=== PATIENT | female | born 1930 | race Caucasian/White ===

== ENCOUNTER 2019-08-26 16:05 | Inpatient (IN) ==
[2019-08-26] MEDS ORDERED: SODIUM CHLORIDE 0.9% 1,000 ML IV STA (16:19)
[2019-08-26] MEDS ORDERED: ONDANSETRON 4 MG/2 ML VIAL IV STA (16:19)
[2019-08-26] MEDS ORDERED: DICYCLOMINE 20 MG/2 ML AMP IM ONE (16:23)
[2019-08-26] MEDS ORDERED: LEVOFLOXACIN INJ 750 MG in PREMIX 1 EACH IV STA (17:03)
[2019-08-26] MEDS ORDERED: metroNIDAZOLE INJ 500 MG in PREMIX 1 EACH IV STA (17:03)
[2019-08-26] MEDS ORDERED: fentaNYL 100 MCG/2 ML VIAL ONE (17:14)
[2019-08-26] MEDS ORDERED: fentaNYL 100 MCG/2 ML VIAL IV STA (17:15)
[2019-08-26 17:56] LABS: Basophils % 0.3 % (0.0-0.8); Hematocrit 42.6 VOL% (35.7-47.0); Hemoglobin 14.3 GM/DL (12.0-16.0); Immature Granulocytes % 0.3 %; Immature Granulocytes Absolute 0.02 #; Lymphocytes # 0.4 10*3/uL (1.4-4.0); Mean Corpuscular HGB Conc 33.6 GM/DL (32-36); Mean Corpuscular Volume 95.9 FL (87-102); Mean Platelet Volume 9.5 FL (9.6-12.0); Monocytes % 5.8 % (1.7-12.7); Neutrophils % 87.6 % (38.7-73.9); Platelet Count 324 T/CUMM (130-400); Red Blood Count 4.44 MC/CUMM (3.8-5.5); Red Cell Distribution Width 14.5 % (9.3-17.3)
[2019-08-26 18:19] LABS: Alanine Aminotransferase 15 U/L (13-56); Albumin 3.4 G/DL (3.4-5.0); Alkaline Phosphatase 57 U/L (45-117); Amylase 378 U/L (25-115); Aspartate Amino Transferase 17 U/L (0-37); Blood Urea Nitrogen 23 MG/DL (7-18); Calcium 8.6 MG/DL (8.5-10.1); Estimated Glom Filtration Rate 24 ML/MIN; Glucose 146 MG/DL (74-106); Osmolality,Calculated 281.7 MOS/KG (273-304); Total Protein 6.7 G/DL (6.4-8.3); Troponin I < 0.015 NG/ML (0.00-0.045)
[2019-08-26] MEDS ORDERED: PHENYLEPHRINE DRIP 40 MG/250 ML PREMIX IV PRN (18:25)
[2019-08-26 18:30] LABS: Anisocytosis 1+; Band Neutrophils 34 % (0-10); Lymphocytes 6 % (20-55); Macrocytosis 1+; Microcytosis Slight; Reactive Lymphocytes Slight; Segmented Neutrophils 56 % (50-85); Total Cells Counted 100
[2019-08-26 18:31] LABS: Platelet Estimate Normal
[2019-08-26] MEDS ORDERED: PHENYLEPHRINE DRIP 40 MG/250 ML PREMIX IV ONE (19:17)
[2019-08-26] MEDS ORDERED: PROPOFOL 1,000 MG/100 ML BOTTLE IV ONE (19:17)
[2019-08-26] MEDS: PROPOFOL 1,000 MG/100 ML BOTTLE IV SCH (19:28)
[2019-08-26 19:49] LABS: Amorphous Crystals,Urine Occasional /HPF (Few); Apearance,Urine CLOUDY (Clear); Bilirubin,Urine Negative (Negative); Blood, Urine Small mg/dL (Negative); Glucose,Urine (UA) Negative (Negative); Hyaline Casts,Urine 34 /LPF (0-3); Ketones,Urine 5 mg/dL (Negative); Mucus,Urine Occasional /LPF (Occasional); Nitrite,Urine Negative (Negative); Protein,Urine 100 MG/DL; Squamous Epithelial Cell,Urine Occasional /HPF (0-10); Urine Color Amber (Yellow); Urine Specific Gravity 1.026 (1.001-1.035); Urine Urobilinogen < 2.0 EU/DL (0.2-1.0)
[2019-08-26] MEDS ORDERED: LIDOCAINE 2% 5 ML VIAL ONE (20:06)
[2019-08-26] MEDS ORDERED: SUCCINYLCHOLINE 200 MG/10 ML VIAL ONE (20:06)
[2019-08-26] MEDS ORDERED: PROPOFOL 200 MG/20 ML VIAL IV ONE (20:06)
[2019-08-26] MEDS ORDERED: ETOMIDATE 40 MG/20 ML VIAL IV ONE (20:06)
[2019-08-26] MEDS ORDERED: ROCURONIUM 100 MG/10 ML VIAL IV ONE (20:08)
[2019-08-26] MEDS ORDERED: PHENYLEPHRINE 1 MG/10 ML SYRINGE IV ONE (20:08)
[2019-08-26] MEDS ORDERED: SEVOFLURANE 1 UNIT/15 MINUTE INH ONE (20:08)
[2019-08-26] MEDS ORDERED: ALBUMIN 5% 12.5 GM/250 ML VIAL IV ONE (20:08)
[2019-08-26] MEDS ORDERED: PHENYLEPHRINE 10 MG/1 ML VIAL IV ONE (20:08)
[2019-08-26] MEDS ORDERED: SODIUM BICARBONATE 50 MEQ/50 ML VIAL IV ONE (20:08)
[2019-08-26] MEDS ORDERED: LACTATED RINGERS 1,000 ML IV ONE (20:09)
[2019-08-26] MEDS ORDERED: SODIUM CHLORIDE 0.9% 250 ML IV ONE (20:09)
[2019-08-26 20:37] LABS: ABG Base Excess -6.3 MMOL/L (-2.5-2.5); ABG HCO3 19.3 MMOL/L (20-26); ABG Oxygen Saturation 97.7 % (95-100); ABG PCO2 54.3 MM HG (35-48); ABG PH 7.222 (7.35-7.45); Allen Test Positive; Pt O2 Delivery Device Ventilator
[2019-08-26] MEDS: DEXTROSE 5% LACTATED RINGERS 1,000 ML IV SCH (21:12)
[2019-08-27] MEDS: metroNIDAZOLE INJ 500 MG in PREMIX 1 EACH IV SCH ×3 (01:36→17:38)
[2019-08-27 03:23] LABS: Basophils % 0.3 % (0.0-0.8); Hematocrit 35.2 VOL% (35.7-47.0); Immature Granulocytes % 0.4 %; Immature Granulocytes Absolute 0.03 #; Lymphocytes # 0.6 10*3/uL (1.4-4.0); Mean Corpuscular HGB Conc 33.8 GM/DL (32-36); Mean Corpuscular Volume 95.1 FL (87-102); Mean Platelet Volume 9.5 FL (9.6-12.0); Monocytes % 6.5 % (1.7-12.7); Neutrophils % 85.8 % (38.7-73.9); Platelet Count 262 T/CUMM (130-400); Red Cell Distribution Width 14.6 % (9.3-17.3)
[2019-08-27 03:32] LABS: Pt O2 Delivery Device Ventilator
[2019-08-27 03:33] LABS: Hemoglobin 11.9 GM/DL (12.0-16.0)
[2019-08-27 03:33] LABS: ABG Base Excess -1.6 MMOL/L (-2.5-2.5); ABG HCO3 23.1 MMOL/L (20-26); ABG Oxygen Saturation 99.3 % (95-100); ABG PH 7.439 (7.35-7.45); ABG TCO2 19.1 MMOL/L (23-27)
[2019-08-27 03:51] LABS: Band Neutrophils 27 % (0-10); Hypochromasia Slight; Lymphocytes 7 % (20-55); Platelet Estimate Normal; Segmented Neutrophils 60 % (50-85); Total Cells Counted 100
[2019-08-27 03:53] LABS: Albumin 3.1 G/DL (3.4-5.0); Calcium 7.6 MG/DL (8.5-10.1); Osmolality,Calculated 287.4 MOS/KG (273-304); Total Protein 5.5 G/DL (6.4-8.3)
[2019-08-27] MEDS: DEXTROSE 5% LACTATED RINGERS 1,000 ML IV SCH ×4 (04:34→23:45)
[2019-08-27] MEDS: HYDROmorphone 2 MG/1 ML VIAL IV PRN ×3 (09:55→16:43)
[2019-08-27] MEDS: PANTOPRAZOLE 40 MG VIAL IV SCH (10:17)
[2019-08-27] MEDS: ENOXAPARIN 30 MG/0.3 ML SYRINGE SUBCUT SCH (10:17)
[2019-08-27] MEDS: PROPOFOL 1,000 MG/100 ML BOTTLE IV SCH ×2 (11:04→18:20)
[2019-08-27] MEDS: ALBUTEROL/IPRATROPIUM 3 ML NEB RESP TX SCH ×2 (13:48→19:38)
[2019-08-27] MEDS: ONDANSETRON 4 MG/2 ML VIAL IV PRN ×2 (14:52→17:43)
[2019-08-27] MEDS: LEVOFLOXACIN INJ 250 MG in PREMIX 1 EACH IV SCH (17:38)
[2019-08-28] MEDS: ALBUTEROL/IPRATROPIUM 3 ML NEB RESP TX SCH ×4 (01:40→20:07)
[2019-08-28] MEDS: metroNIDAZOLE INJ 500 MG in PREMIX 1 EACH IV SCH ×3 (02:30→17:26)
[2019-08-28] MEDS: HYDROmorphone 2 MG/1 ML VIAL IV PRN ×5 (02:34→20:32)
[2019-08-28] MEDS: ONDANSETRON 4 MG/2 ML VIAL IV PRN ×4 (02:34→13:25)
[2019-08-28 08:25] LABS: Basophils % 0.1 % (0.0-0.8); Eosinophils % 0.1 % (0.00-10.9); Hemoglobin 10.1 GM/DL (12.0-16.0); Immature Granulocytes % 0.7 %; Immature Granulocytes Absolute 0.08 #; Lymphocytes # 0.6 10*3/uL (1.4-4.0); Lymphocytes % 5.7 % (21.3-54.2); Mean Corpuscular HGB Conc 33.7 GM/DL (32-36); Mean Corpuscular Volume 96.5 FL (87-102); Mean Platelet Volume 9.5 FL (9.6-12.0); Monocytes % 5.5 % (1.7-12.7); Neutrophils % 87.9 % (38.7-73.9); Platelet Count 179 T/CUMM (130-400); Red Blood Count 3.11 MC/CUMM (3.8-5.5); Red Cell Distribution Width 14.9 % (9.3-17.3)
[2019-08-28 08:35] LABS: Calcium 7.9 MG/DL (8.5-10.1); Osmolality,Calculated 288.8 MOS/KG (273-304)
[2019-08-28 08:43] LABS: Band Neutrophils 1 % (0-10); Hypochromasia 1+; Lymphocytes 3 % (20-55); Ovalocytes Slight; Platelet Estimate Adequate; Segmented Neutrophils 89 % (50-85); Total Cells Counted 100
[2019-08-28] MEDS: DEXTROSE 5% LACTATED RINGERS 1,000 ML IV SCH ×2 (09:44→15:37)
[2019-08-28] MEDS: PANTOPRAZOLE 40 MG VIAL IV SCH (09:45)
[2019-08-28] MEDS: ENOXAPARIN 30 MG/0.3 ML SYRINGE SUBCUT SCH (09:45)
[2019-08-28] MEDS ORDERED: MAGNESIUM SULF RIDER 4 GM in PREMIX 1 EACH IV PRN (10:34)
[2019-08-28] MEDS ORDERED: NYSTATIN 500,000 UNIT/5 ML UDCUP SWISH/SWAL ONE (10:46)
[2019-08-28] MEDS: POTASSIUM CHLORIDE RIDER 10 MEQ in PREMIX 1 EACH IV PRN ×4 (11:51→15:34)
[2019-08-28] MEDS: MAGNESIUM SULF RIDER 2 GM in PREMIX 1 EACH IV PRN (11:52)
[2019-08-28] MEDS: NYSTATIN 500,000 UNIT/5 ML UDCUP SWISH/SWAL SCH ×3 (13:07→20:32)
[2019-08-28] MEDS ORDERED: diphenhydrAMINE CAP 25 MG CAPSULE PO PRN (15:45)
[2019-08-28] MEDS: PREGABALIN 75 MG CAPSULE PO SCH ×2 (15:52→20:33)
[2019-08-28] MEDS: LEVOFLOXACIN INJ 250 MG in PREMIX 1 EACH IV SCH (19:06)
[2019-08-29] MEDS: DEXTROSE 5% LACTATED RINGERS 1,000 ML IV SCH ×4 (00:09→18:43)
[2019-08-29] MEDS: ALBUTEROL/IPRATROPIUM 3 ML NEB RESP TX SCH ×4 (01:00→20:35)
[2019-08-29] MEDS: metroNIDAZOLE INJ 500 MG in PREMIX 1 EACH IV SCH ×3 (01:28→17:09)
[2019-08-29 05:20] LABS: Basophils % 0.1 % (0.0-0.8); Eosinophils % 0.5 % (0.00-10.9); Hematocrit 26.6 VOL% (35.7-47.0); Hemoglobin 8.8 GM/DL (12.0-16.0); Immature Granulocytes % 0.5 %; Immature Granulocytes Absolute 0.04 #; Lymphocytes # 0.3 10*3/uL (1.4-4.0); Lymphocytes % 3.9 % (21.3-54.2); Mean Corpuscular HGB Conc 33.1 GM/DL (32-36); Mean Corpuscular Volume 98.2 FL (87-102); Mean Platelet Volume 10.3 FL (9.6-12.0); Platelet Count 180 T/CUMM (130-400); Red Blood Count 2.71 MC/CUMM (3.8-5.5); Red Cell Distribution Width 14.9 % (9.3-17.3); White Blood Count 8.6 T/CUMM (4-12)
[2019-08-29 05:30] LABS: Albumin 2.1 G/DL (3.4-5.0); Bilirubin,Total 0.6 MG/DL (0.2-1.0); Calcium 7.3 MG/DL (8.5-10.1); Total Protein 4.8 G/DL (6.4-8.3)
[2019-08-29 05:59] LABS: Band Neutrophils 7 % (0-10); Lymphocytes 8 % (20-55); Segmented Neutrophils 80 % (50-85); Total Cells Counted 100
[2019-08-29 06:00] LABS: Hypochromasia 1+; Microcytosis Slight
[2019-08-29 06:01] LABS: Platelet Estimate Adequate
[2019-08-29] MEDS ORDERED: BUPIVACAINE MPF 0.25% 30 ML VIAL ONE (08:03)
[2019-08-29] MEDS ORDERED: LIDOCAINE 1%/EPI INJ 20 ML VIAL ONE (08:03)
[2019-08-29] MEDS ORDERED: PROPOFOL 200 MG/20 ML VIAL IV ONE (08:58)
[2019-08-29] MEDS ORDERED: LIDOCAINE 2% 5 ML VIAL ONE (08:58)
[2019-08-29] MEDS ORDERED: ETOMIDATE 40 MG/20 ML VIAL IV ONE (08:58)
[2019-08-29] MEDS: PANTOPRAZOLE 40 MG VIAL IV SCH (10:30)
[2019-08-29] MEDS: HYDROmorphone 2 MG/1 ML VIAL IV PRN ×2 (10:45→21:16)
[2019-08-29] MEDS: NYSTATIN 500,000 UNIT/5 ML UDCUP SWISH/SWAL SCH ×4 (11:02→21:17)
[2019-08-29] MEDS: PREGABALIN 75 MG CAPSULE PO SCH ×3 (11:02→21:17)
[2019-08-29] MEDS: LEVOFLOXACIN INJ 250 MG in PREMIX 1 EACH IV SCH (18:30)
[2019-08-29] MEDS ORDERED: INFLUENZA VIRUS VACCINE 0.5 ML SYRINGE IM ONE (22:50)
[2019-08-29] MEDS ORDERED: PNEUMOCOCCAL VACCINE (13 VALENT) 0.5 ML SYRINGE IM ONE (22:56)
[2019-08-30] MEDS: DEXTROSE 5% LACTATED RINGERS 1,000 ML IV SCH ×3 (02:02→14:58)
[2019-08-30] MEDS: ALBUTEROL/IPRATROPIUM 3 ML NEB RESP TX SCH ×4 (02:07→19:32)
[2019-08-30] MEDS: metroNIDAZOLE INJ 500 MG in PREMIX 1 EACH IV SCH ×3 (02:11→17:08)
[2019-08-30 08:16] LABS: Calcium 7.9 MG/DL (8.5-10.1); Osmolality,Calculated 278.5 MOS/KG (273-304)
[2019-08-30] MEDS: HYDROmorphone 2 MG/1 ML VIAL IV PRN ×3 (08:36→21:31)
[2019-08-30] MEDS: PANTOPRAZOLE 40 MG VIAL IV SCH (08:43)
[2019-08-30] MEDS: PREGABALIN 75 MG CAPSULE PO SCH ×3 (08:46→21:28)
[2019-08-30] MEDS: NYSTATIN 500,000 UNIT/5 ML UDCUP SWISH/SWAL SCH ×4 (08:46→21:29)
[2019-08-30] MEDS: MAGNESIUM SULF RIDER 2 GM in PREMIX 1 EACH IV PRN (09:57)
[2019-08-30] MEDS ORDERED: POTASSIUM CHLORIDE 20 MEQ TABLET PO ONE (09:58)
[2019-08-30] MEDS: POTASSIUM CHLORIDE RIDER 10 MEQ in PREMIX 1 EACH IV PRN (09:58)
[2019-08-30] MEDS: POTASSIUM CHLORIDE RIDER 10 MEQ in PREMIX 1 EACH IV SCH ×4 (10:07→13:59)
[2019-08-30] MEDS: ONDANSETRON 4 MG/2 ML VIAL IV PRN ×2 (16:27→21:30)
[2019-08-30] MEDS: LEVOFLOXACIN INJ 250 MG in PREMIX 1 EACH IV SCH (18:22)
[2019-08-31] MEDS: ALBUTEROL/IPRATROPIUM 3 ML NEB RESP TX SCH ×4 (00:35→19:00)
[2019-08-31] MEDS: ONDANSETRON 4 MG/2 ML VIAL IV PRN ×4 (00:38→21:59)
[2019-08-31] MEDS: HYDROmorphone 2 MG/1 ML VIAL IV PRN ×4 (00:38→21:59)
[2019-08-31] MEDS: DEXTROSE 5% LACTATED RINGERS 1,000 ML IV SCH ×2 (00:40→07:36)
[2019-08-31] MEDS: metroNIDAZOLE INJ 500 MG in PREMIX 1 EACH IV SCH ×4 (02:03→17:20)
[2019-08-31] MEDS: NYSTATIN 500,000 UNIT/5 ML UDCUP SWISH/SWAL SCH ×6 (07:38→21:37)
[2019-08-31] MEDS: PREGABALIN 75 MG CAPSULE PO SCH ×4 (07:38→21:31)
[2019-08-31] MEDS: PANTOPRAZOLE 40 MG VIAL IV SCH ×2 (07:43→09:03)
[2019-08-31 08:36] LABS: Basophils % 0.1 % (0.0-0.8); Eosinophils # 0.1 10*3/uL (0.0-0.87); Eosinophils % 1.1 % (0.00-10.9); Hematocrit 29.4 VOL% (35.7-47.0); Hemoglobin 9.8 GM/DL (12.0-16.0); Immature Granulocytes % 0.9 %; Immature Granulocytes Absolute 0.09 #; Lymphocytes # 0.6 10*3/uL (1.4-4.0); Lymphocytes % 5.2 % (21.3-54.2); Mean Corpuscular HGB Conc 33.3 GM/DL (32-36); Mean Corpuscular Volume 95.1 FL (87-102); Mean Platelet Volume 9.9 FL (9.6-12.0); Monocytes % 11.2 % (1.7-12.7); Neutrophils % 81.5 % (38.7-73.9); Platelet Count 200 T/CUMM (130-400); Red Blood Count 3.09 MC/CUMM (3.8-5.5); Red Cell Distribution Width 14.6 % (9.3-17.3); White Blood Count 10.6 T/CUMM (4-12)
[2019-08-31 08:44] LABS: Osmolality,Calculated 266.2 MOS/KG (273-304)
[2019-08-31] MEDS ORDERED: MAGNESIUM SULF RIDER 4 GM in PREMIX 1 EACH IV ONE (09:19)
[2019-08-31] MEDS: POTASSIUM CHLORIDE RIDER 10 MEQ in PREMIX 1 EACH IV PRN ×2 (09:31→12:37)
[2019-08-31] MEDS: MAGNESIUM SULF RIDER 2 GM in PREMIX 1 EACH IV PRN ×2 (09:32→12:37)
[2019-08-31] MEDS: DEXT 5% LACT RING KCL 20 MEQ 20 MEQ/1,000 ML BAG IV SCH (10:07)
[2019-08-31] MEDS: POTASSIUM CHLORIDE RIDER 20 MEQ in PREMIX 1 EACH IV SCH ×2 (10:37→13:21)
[2019-08-31] MEDS: LEVOFLOXACIN INJ 250 MG in PREMIX 1 EACH IV SCH (18:36)
[2019-09-01] MEDS: ALBUTEROL/IPRATROPIUM 3 ML NEB RESP TX SCH ×3 (00:45→12:16)
[2019-09-01] MEDS: DEXT 5% LACT RING KCL 20 MEQ 20 MEQ/1,000 ML BAG IV SCH ×2 (01:19→09:02)
[2019-09-01] MEDS: ONDANSETRON 4 MG/2 ML VIAL IV PRN ×2 (02:05→05:54)
[2019-09-01] MEDS: HYDROmorphone 2 MG/1 ML VIAL IV PRN ×2 (02:05→05:59)
[2019-09-01 04:54] LABS: Calcium 7.8 MG/DL (8.5-10.1); Osmolality,Calculated 273.7 MOS/KG (273-304)
[2019-09-01] MEDS ORDERED: BISACODYL 10 MG SUPP RECTAL ONE (07:25)
[2019-09-01 08:32] VITALS: BP 155/74
[2019-09-01] MEDS: PANTOPRAZOLE 40 MG VIAL IV SCH (09:01)
[2019-09-01] MEDS: NYSTATIN 500,000 UNIT/5 ML UDCUP SWISH/SWAL SCH (09:01)
[2019-09-01] MEDS: PREGABALIN 75 MG CAPSULE PO SCH (09:01)
[2019-09-01] MEDS ORDERED: KETOROLAC 15 MG/1 ML VIAL IV PRN (11:23)
[2019-09-01] MEDS ORDERED: SODIUM PHOSPHATE ENEMA 133 ML BOTTLE RECTAL ONE (11:27)
== END 2019-09-01 13:16 | disposition swing bed (61) | DRG 853 ==
LOC: N.ED 16:05 → N.EDINP 17:04 → N.CC 17:27 → N.3E 08-28 13:45
PROVIDERS: ADMIT Surgery; ATTEND Surgery

== ENCOUNTER 2019-10-07 10:36 | Inpatient (IN) ==
[2019-10-07 12:24] LABS: Apearance,Urine CLEAR (Clear); Bilirubin,Urine Negative (Negative); Blood, Urine Negative (Negative); Glucose,Urine (UA) Negative (Negative); Hyaline Casts,Urine 1 /LPF (0-3); Ketones,Urine 80 mg/dL (Negative); Mucus,Urine Many /LPF (Occasional); Nitrite,Urine Negative (Negative); Protein,Urine 30 MG/DL; RBC,Urine 1 /HPF (0-4); Squamous Epithelial Cell,Urine Occasional /HPF (0-10); Urine Color Yellow (Yellow); Urine Specific Gravity 1.019 (1.001-1.035); WBC,Urine 1 /HPF (0-6)
[2019-10-07] MEDS ORDERED: SODIUM CHLORIDE 0.9% 1,000 ML IV STA (12:37)
[2019-10-07 12:59] LABS: Basophils % 0.4 % (0.0-0.8); Eosinophils % 0.2 % (0.00-10.9); Hematocrit 35.4 VOL% (35.7-47.0); Hemoglobin 11.6 GM/DL (12.0-16.0); Immature Granulocytes % 0.4 %; Immature Granulocytes Absolute 0.02 #; Lymphocytes # 1.1 10*3/uL (1.4-4.0); Lymphocytes % 20.6 % (21.3-54.2); Mean Corpuscular HGB Conc 32.8 GM/DL (32-36); Mean Corpuscular Volume 94.9 FL (87-102); Mean Platelet Volume 9.5 FL (9.6-12.0); Monocytes % 8.6 % (1.7-12.7); Neutrophils % 69.8 % (38.7-73.9); Platelet Count 287 T/CUMM (130-400); Red Blood Count 3.73 MC/CUMM (3.8-5.5); Red Cell Distribution Width 14.1 % (9.3-17.3); White Blood Count 5.5 T/CUMM (4-12)
[2019-10-07 13:12] LABS: PT Patient Result 10.7 SECS (9.6-12.2)
[2019-10-07 13:18] LABS: Albumin 3.6 G/DL (3.4-5.0); Bilirubin,Total 0.7 MG/DL (0.2-1.0); Calcium 8.8 MG/DL (8.5-10.1); Osmolality,Calculated 278.4 MOS/KG (273-304); Total Protein 7.1 G/DL (6.4-8.3)
[2019-10-07 14:26] LABS: Barbiturates Screen,Urine Negative (Negative); Benzodiazepines Screen,Urine Negative (Negative); Cannabinoid Screen,Urine Negative (Negative); Opiate Screen,Urine Positive (Negative); Phencyclidine Screen,Urine Negative (Negative)
[2019-10-07] MEDS ORDERED: ONDANSETRON 4 MG/2 ML VIAL IV PRN (15:57)
[2019-10-07] MEDS: SODIUM CHLORIDE 0.9% 1,000 ML IV SCH (16:32)
[2019-10-07] MEDS: DOCUSATE SODIUM 100 MG CAPSULE PO SCH (22:31)
[2019-10-08] MEDS: SODIUM CHLORIDE 0.9% 1,000 ML IV SCH ×5 (06:35→23:07)
[2019-10-08] MEDS: DOCUSATE SODIUM 100 MG CAPSULE PO SCH ×2 (10:19→21:21)
[2019-10-08] MEDS: PANTOPRAZOLE 40 MG TABLET PO SCH (10:20)
[2019-10-08] MEDS ORDERED: Esomeprazole Magnesium [Nexium] 20 MG PO SCH (12:00)
[2019-10-08 12:57] LABS: Calcium 7.8 MG/DL (8.5-10.1); Osmolality,Calculated 281.3 MOS/KG (273-304)
[2019-10-08] MEDS ORDERED: TUBERCULIN SKIN TEST 0.1 ML SYRINGE INTRADERM ONE (17:03)
[2019-10-08] MEDS: ACETAMINOPHEN 325 MG TABLET PO PRN (21:26)
[2019-10-09] MEDS: SODIUM CHLORIDE 0.9% 1,000 ML IV SCH (08:48)
[2019-10-09] MEDS: DOCUSATE SODIUM 100 MG CAPSULE PO SCH ×2 (08:48→21:59)
[2019-10-09] MEDS: PANTOPRAZOLE 40 MG TABLET PO SCH (08:49)
[2019-10-09] MEDS: PREGABALIN 50 MG CAPSULE PO SCH ×3 (08:49→21:58)
[2019-10-09 09:19] LABS: Calcium 7.7 MG/DL (8.5-10.1); Osmolality,Calculated 285.8 MOS/KG (273-304)
[2019-10-09] MEDS ORDERED: MAGNESIUM SULF RIDER 4 GM in PREMIX 1 EACH IV PRN (10:45)
[2019-10-09] MEDS ORDERED: MAGNESIUM SULF RIDER 2 GM in PREMIX 1 EACH IV PRN (10:45)
[2019-10-09] MEDS: POTASSIUM CHLORIDE 20 MEQ TABLET PO PRN ×4 (13:34→21:58)
[2019-10-10] MEDS: PREGABALIN 50 MG CAPSULE PO SCH ×3 (09:39→20:36)
[2019-10-10] MEDS: PANTOPRAZOLE 40 MG TABLET PO SCH (09:39)
[2019-10-10] MEDS: POTASSIUM CHLORIDE 20 MEQ TABLET PO PRN (09:39)
[2019-10-10] MEDS: DOCUSATE SODIUM 100 MG CAPSULE PO SCH ×2 (09:41→20:36)
[2019-10-10] MEDS: ACETAMINOPHEN 325 MG TABLET PO PRN ×2 (12:19→20:36)
[2019-10-11] MEDS: PREGABALIN 50 MG CAPSULE PO SCH ×3 (09:00→20:32)
[2019-10-11] MEDS: ACETAMINOPHEN 325 MG TABLET PO PRN ×2 (09:00→14:26)
[2019-10-11] MEDS: DOCUSATE SODIUM 100 MG CAPSULE PO SCH ×2 (09:00→20:32)
[2019-10-11] MEDS: PANTOPRAZOLE 40 MG TABLET PO SCH (09:00)
[2019-10-12] MEDS: DOCUSATE SODIUM 100 MG CAPSULE PO SCH ×2 (09:00→21:14)
[2019-10-12] MEDS: PREGABALIN 50 MG CAPSULE PO SCH ×3 (09:01→21:14)
[2019-10-12] MEDS: PANTOPRAZOLE 40 MG TABLET PO SCH (09:01)
[2019-10-12] MEDS: ACETAMINOPHEN 325 MG TABLET PO PRN (10:31)
[2019-10-13] MEDS: ACETAMINOPHEN 325 MG TABLET PO PRN ×2 (04:17→09:27)
[2019-10-13] MEDS: PREGABALIN 50 MG CAPSULE PO SCH (09:24)
[2019-10-13] MEDS: PANTOPRAZOLE 40 MG TABLET PO SCH (09:24)
[2019-10-13] MEDS: DOCUSATE SODIUM 100 MG CAPSULE PO SCH (09:24)
[2019-10-13 11:10] VITALS: BP 111/57
== END 2019-10-13 11:13 | DRG 884 ==
LOC: N.ED 10:36 → N.EDINP 14:15 → N.5E 15:36
PROVIDERS: ADMIT Family Medicine; ATTEND Family Medicine